=== PATIENT | male | born 1960 | race African-American/Black ===

== ENCOUNTER 2017-06-13 07:56 | Emergency (ER) | payer OTHER ==
[2017-06-13] MEDS ORDERED: Morphine 10 MG/ML VIAL ONE (08:27)
[2017-06-13 08:31] LABS: Bilirubin Negative (Negative); Blood, Urine Trace (Negative); Clarity Clear (Clear); Glucose, Urine (Dipstick) Negative (Negative); Leukocyte Negative (Negative); Nitrite Negative (Negative); Protein, Urine (Dipstick) 100 mg/dL (Neg-Trace); Specific Gravity, Urine 1.025 (1.005-1.030); Urobilinogen 0.2 mg/dL (0.2-1.0); pH, Urine 5.5 (5.0-9.0)
[2017-06-13 09:07] LABS: Bacteria/HPF 1+ HPF (None Seen); Hyaline Casts/LPF 0-3 HYALINE CAST LPF (0-3 Hyaline); RBC/HPF 0-3 HPF (0-3); Squamous Epithelial 0-3 HPF (0-3)
--- NOTE | 2017-06-13 09:23 | RAD ---
RADIOGRAPH LUMBAR SPINE 3 VIEWS: Date: 06/13/17 HISTORY: 57-year-old male with low back pain. No mention of trauma. FINDINGS: There are five lumbar-type vertebrae. There is minimal, chronic appearing anterior wedging of the L1, T12, and T11 vertebral bodies. Otherwise, the rest of the lumbar vertebral body heights are maintain ed. Disc spaces are maintained. Small marginal end plate osteophytes at all levels. Alignment is norm al. There is mild to moderate disc space narrowing at T12-L1 and facet osteoarthrosis at L4-5 and L5- S1. IMPRESSION: Mild lumbar spondylosis. YEN [] POS: NATE
== END 2017-06-13 09:28 | disposition home or self-care (01) ==
LOC: BURERS 07:56
DX: N30.01 Acute cystitis with hematuria (principal); I25.10 Atherosclerotic heart disease of native coronary artery without angina pectoris; I10 Essential (primary) hypertension; I25.2 Old myocardial infarction; F17.210 Nicotine dependence, cigarettes, uncomplicated
CPT/HCPCS: 72100; 81003; 81015; 96374; J2270

== ENCOUNTER 2018-05-22 02:42 | Emergency (ER) | payer OTHER ==
[2018-05-22] MEDS ORDERED: Meclizine HCl 25 MG TAB ONE (03:26)
[2018-05-22 03:36] LABS: ALT (SGPT) 23 U/L (8-55); AST (SGOT) 27 U/L (5-34); Albumin 3.3 g/dL (3.5-5.0); Alkaline Phosphatase 106 U/L (40-150); Anion Gap 15 mmol/L (10-20); BUN (Urea Nitrogen) 9 mg/dL (8.4-25.7); Bilirubin, Total 0.8 mg/dL (0.2-1.2); Calc. Creatinine Clearance 0 mL/min (70-130); Calcium 8.6 mg/dL (7.8-10.44); Carbon Dioxide 21 mmol/L (22-29); Chloride 96 mmol/L (98-107); Estimated GFR-MDRD Greater than 90; Globulin 4.4 g/dL (2.4-3.5); Glucose 93 mg/dL (70-105); Potassium 3.8 mmol/L (3.5-5.1); Protein, Total 7.7 g/dL (6.0-8.3); Sodium 128 mmol/L (136-145)
[2018-05-22 03:45] LABS: Band 5 % (5-11); Eosinophils 2 % (0-10); Hemoglobin 10.4 g/dL (14.0-18.0); Large Platelets SLIGHT; Lymphocytes 58 % (21-51); MDiff Complete? YES; Mean Corpuscular HGB CONC 35.3 g/dL (32.0-36.0); Mean Corpuscular Hemoglobin 28.2 pg (27.0-31.0); Mean Corpuscular Volume 79.8 fL (78.0-98.0); Mean Platelet Volume 10.1 fL (7.4-10.4); Monocytes 14 % (0-10); Neutrophil 21 % (42-75); PLT Morphology Comment Appears Decreased; Platelet Count 90 thou/uL (130-400); Polychromasia SLIGHT = 2-3 cells (100X) (0-2/hpf); RBC Distribution Width 13.2 % (11.5-14.5); RBC Morphology Normal; Red Blood Cell (RBC) Count 3.68 mill/uL (4.70-6.10); Vacuoles SLIGHT; White Blood Cell (WBC) Count 4.1 thou/uL (4.8-10.8)
== END 2018-05-22 04:39 | disposition home or self-care (01) ==
LOC: BURERS 02:42
DX: E87.1 Hypo-osmolality and hyponatremia (principal); C34.90 Malignant neoplasm of unspecified part of unspecified bronchus or lung; J44.9 Chronic obstructive pulmonary disease, unspecified; I25.10 Atherosclerotic heart disease of native coronary artery without angina pectoris; I10 Essential (primary) hypertension; F17.210 Nicotine dependence, cigarettes, uncomplicated
CPT/HCPCS: 80053; 85025; 94760; 96360